=== PATIENT | female | born 1980 | race Caucasian/White ===

== ENCOUNTER 2024-10-18 11:45 | Emergency (ER) | payer MEDICAID, SELFPAY ==
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
[2024-10-18 12:09] VITALS: BP 137/71; BP 142/84; PULSE 76; PULSE 88; RESP 18; TEMP 36.4; O2SAT 100; O2SAT 97; BMI 45.5
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
[2024-10-18] MEDS: Cyclobenzaprine HCl 10 MG TABLET PO (13:17)
[2024-10-18] MEDS: Acetaminophen 325 MG TABLET 650 MG PO (13:17)
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
[2024-10-18 16:28] VITALS: BP 126/64; PULSE 75; RESP 16; TEMP 36.6; O2SAT 97
== END 2024-10-18 16:29 | disposition home or self-care (01) ==
PROVIDERS: Emergency Provider Emergency Medicine; PCP Family Medicine
DX: S29.011A Strain of muscle and tendon of front wall of thorax, initial encounter (principal); S80.02XA Contusion of left knee, initial encounter; S13.4XXA Sprain of ligaments of cervical spine, initial encounter; M54.2 Cervicalgia; R07.89 Other chest pain; M25.562 Pain in left knee; V43.52XA Car driver injured in collision with other type car in traffic accident, initial encounter; Y93.89 Activity, other specified; Y92.488 Other paved roadways as the place of occurrence of the external cause; Y99.8 Other external cause status
CPT/HCPCS: 70450; 71045; 72125; 73564; 99284